=== PATIENT | female | born 1975 | race Caucasian/White ===

== ENCOUNTER → 2016-07-06 | Outpatient (CLI) | payer OTHER ==
[~2016-07-06] MED LIST: IBUPROFEN600 MG PO
== END ==
LOC: US 07-03 14:00
DX: M79.605 Pain in left leg (principal); Z88.2 Allergy status to sulfonamides; Z88.5 Allergy status to narcotic agent
CPT/HCPCS: 93971

== ENCOUNTER → 2016-07-20 | Outpatient (CLI) | payer OTHER | LOC: CT 08:09 → KOH-I 11:00 | DX: R91.1 Solitary pulmonary nodule (principal); R91.8 Other nonspecific abnormal finding of lung field | CPT/HCPCS: 36415; 71260; 82565; 84520; J7050; Q9962 ==